=== PATIENT | male | born 1960 | race Caucasian/White ===

== ENCOUNTER → 2016-10-12 | Outpatient (CLI) | payer OTHER | LOC: M SLEEP 19:01 | PROVIDERS: ATTEND Nurse Practitioner Adult Health | DX: G47.30 Sleep apnea, unspecified (principal) ==

== ENCOUNTER → 2016-11-22 | Outpatient (CLI) | payer OTHER ==
--- NOTE | 2016-11-24 10:05 | SLEEPCENT ---
DATE OF PROCEDURE: 11/22/2016 ORDERED BY: WALLY Cheney Nocturnal polysomnography was performed for the titration of pressure therapy in this patient with severe obstructive sleep apnea syndrome, apnea hypopnea index 48.8. For testing, the patient was fit with a ResMed Quattro full face mask of small size. 4 cm of water pressure were applied to the circuit and the lights were extinguished. 8 hours and 27 minutes of data were reviewed. There were 418 minutes of sleep identified. Sleep latency was normal at 9 minutes. Rapid eye movement (REM) latency was mildly delayed at 114 minutes. Sleep architecture initially fragmented did improve with pressure therapy. There were 4 REM periods appreciated. Overall sleep efficiency was 83.9%. EKG showed a sinus rhythm with an average heart rate of 75 beats per minute. EEG showed some alpha intrusion. No focal events were seen. Normal waveforms for awake and sleep. Respiratory events were best palliated with CPAP at a pressure of +9. CPAP tolerance was good. There was some limb activity appreciated on this testing. Limb movement arousal index was 6.7. IMPRESSION: Obstructive sleep apnea syndrome (G47.33). RECOMMENDATION: Nightly use of pressure therapy 9 cm of water.
== END ==
LOC: M SLEEP 19:08
PROVIDERS: ATTEND Nurse Practitioner Adult Health
DX: G47.33 Obstructive sleep apnea (adult) (pediatric) (principal)

== ENCOUNTER → 2017-11-18 | Outpatient (CLI) | payer OTHER | LOC: M WUC 15:33 | DX: M47.816 Spondylosis without myelopathy or radiculopathy, lumbar region (principal) | CPT/HCPCS: 72110 ==

== ENCOUNTER → 2018-05-05 | Outpatient (CLI) | payer OTHER | LOC: M WUC 10:32 | DX: M25.511 Pain in right shoulder (principal) | CPT/HCPCS: 73030 ==

== ENCOUNTER → 2018-11-26 | Outpatient (CLI) | payer OTHER ==
[2018-11-26 12:18] LABS: BASO # 0.1 10^3/uL (0.0-0.2); BASO % 1.1 % (0.0-1.0); EOS # 0.1 10^3/uL (0.0-0.50); EOS % 1.8 % (0.0-3.0); HEMATOCRIT 47.3 % (42.0-52.0); HEMOGLOBIN 15.7 g/dl (13.5-17.5); LYMPH # 0.9 10^3/uL (1.5-4.5); LYMPH % 15.5 % (24.0-44.0); MEAN CORPUSCULAR HEMOGLOBIN 30.5 pg (27.0-33.0); MEAN CORPUSCULAR HGB CONC 33.2 g/dl (32.0-36.5); MEAN CORPUSCULAR VOLUME 91.8 fl (80.0-96.0); MONO # 0.5 10^3/uL (0.0-0.8); NEUTROPHILS # 4.1 10^3/uL (1.8-7.7); NEUTROPHILS % 71.4 % (36.0-66.0); PLATELET COUNT, AUTOMATED 174 10^3/uL (150-450); RED BLOOD COUNT 5.15 10^6/uL (4.30-6.10); WHITE BLOOD COUNT 5.7 10^3/uL (4.0-10.0)
[2018-11-26 13:03] LABS: ALBUMIN 4.2 GM/DL (3.2-5.2); ALT/SGPT 66 U/L (12-78); BILIRUBIN,TOTAL 0.8 MG/DL (0.2-1.0); BLOOD UREA NITROGEN 12 MG/DL (7-18); CALCIUM LEVEL 8.7 MG/DL (8.5-10.1); CARBON DIOXIDE LEVEL 31 MEQ/L (21-32); CHLORIDE LEVEL 104 MEQ/L (98-107); CREATININE FOR GFR 0.79 MG/DL (0.70-1.30); FREE T4 1.39 NG/DL (0.76-1.46); GLOMERULAR FILTRATION RATE > 60.0 (>56); GLUCOSE, FASTING 113 MG/DL (70-100); POTASSIUM SERUM 4.1 MEQ/L (3.5-5.1); SODIUM LEVEL 141 MEQ/L (136-145); THYROID STIMULATING HORMONE 0.293 uIU/ML (0.358-3.740); TOTAL PROTEIN 7.1 GM/DL (6.4-8.2)
[2018-11-26 13:12] LABS: HEPATITIS B SURFACE ANTIGEN NEGATIVE (NEGATIVE)
[2018-11-26 13:40] LABS: HEPATITIS B CORE ANTIBODY IGM NEGATIVE (NEGATIVE)
[2018-11-26 13:42] LABS: HEPATITIS A ANTIBODY IGM NEGATIVE (NEGATIVE)
== END ==
LOC: M LAB 11:11
PROVIDERS: ATTEND Internal Medicine Gastroenterology
DX: K50.018 Crohn's disease of small intestine with other complication (principal)

== ENCOUNTER → 2018-11-27 | Outpatient (REF) | payer OTHER | LOC: M LAB REF 13:08 | PROVIDERS: ATTEND Internal Medicine Gastroenterology | DX: K50.018 Crohn's disease of small intestine with other complication (principal) ==

== ENCOUNTER 2019-01-05 11:04 | Day surgery (SDC) | payer OTHER ==
[~2019-01-05] VITALS: Ht 188 cm; Wt 98.0 kg
[~2019-01-05 11:04] MED LIST: ALL10TAB3 PO; ATOR1TAB21 PO; DELZ400C PO; ESOM1CAP5 PO; FEXO180T70 PO; INVO300T PO; LOSA100T50 PO; METF500T13 PO; NAPR-885 PO; NAPR220C23 PO; NS 1,000 ML IV ONE
--- NOTE | 2019-01-05 12:38 | ROOR ---
Patient Name: Nohemi Leigh Procedure Date: 01/05/2019 12:25 PM Date of : 1960 Age: 58 Room: [facility] Gender: Male Note Status: Finalized Procedure: Upper GI endoscopy Indications: Nausea Providers: José Miguel WALLIS MD Referring MD: PADILLA SAAVEDRA JR, MD Requesting Provider: Medicines: Monitored Anesthesia Care Complications: No immediate complications. Procedure: Pre-Anesthesia Assessment: - The heart rate, respiratory rate, oxygen saturations, blood pressure, adequacy of pulmonary ventilation, and response to care were monitored throughout the procedure. The Endoscope was introduced through the mouth, and advanced to the second part of duodenum. The upper GI endoscopy was accomplished without difficulty. The patient tolerated the procedure well. Findings: The esophagus was normal. The stomach was normal. The examined duodenum was normal. Impression: - Normal esophagus. - Normal stomach. - Normal examined duodenum. - No specimens collected. Recommendation: - Observe patient's clinical course. - Continue present medications. José Miguel Wallis MD José Miguel WALLIS MD 01/05/2019 12:37:58 PM Electronically signed by José Miguel WALLIS MD Number of Addenda: 0 Note Initiated On: 01/05/2019 12:25 PM Estimated Blood Loss: Estimated blood loss: none.
[2019-01-05] MEDS ORDERED: fentaNYL 100 MCG/2 ML INJECTION (J3010) As Ordered ONE (12:58)
[2019-01-05] MEDS ORDERED: LIDOCAINE 2% INJ 100 MG/5 ML SDV (FOR ANES.) As Ordered ONE (12:58)
[2019-01-05] MEDS ORDERED: PROPOFOL 500 MG/50 ML VIAL As Ordered ONE (12:58)
--- NOTE | 2019-01-05 13:08 | ROOR ---
Patient Name: Nohemi Leigh Procedure Date: 01/05/2019 12:25 PM Date of : 1960 Age: 58 Room: [facility] Gender: Male Note Status: Finalized Procedure: Colonoscopy Indications: Follow-up of Crohn's disease of the small bowel, Disease activity assessment of Crohn's disease of the small bowel Providers: José Miguel ALBERT MD Referring MD: PADILLA SAAVEDRA JR, MD, Jesus Ruiz MD Requesting Provider: Medicines: Monitored Anesthesia Care Complications: No immediate complications. Procedure: Pre-Anesthesia Assessment: - The heart rate, respiratory rate, oxygen saturations, blood pressure, adequacy of pulmonary ventilation, and response to care were monitored throughout the procedure. The Colonoscope was introduced through the anus and advanced to 10 cm into the ileum. The colonoscopy was performed without difficulty. The patient tolerated the procedure well. The quality of the bowel preparation was good. Findings: The perianal and digital rectal examinations were normal. The napoleon-terminal ileum contained multiple five mm ulcers. Biopsies were taken with a cold forceps for histology. The colon (entire examined portion) appeared normal. Retroflexion in the right colon was performed. There was evidence of a prior functional end-to-end ileo-colonic anastomosis in the ascending colon. This was patent and was characterized by ulceration. The anastomosis was traversed. Impression: - Crohns disease Ileum: Widely patent ileo-colonic anastomosis with a few ulcerations. There are multiple scattered aphta and small ulcers in the napoleon-terminal ileum. Biopsied. - Small internal hemorrhoids. - The colon is normal. Recommendation: - Await pathology results. - Return to my office at the next available appointment. - (I would recommend starting you on a biologic crohns medication such as remicade/humira or entyvio/stelara. To be discussed) José Miguel Albert MD José Miguel ALBERT MD 01/05/2019 1:08:27 PM Electronically signed by José Miguel ALBERT MD Number of Addenda: 0 Note Initiated On: 01/05/2019 12:25 PM Estimated Blood Loss: Estimated blood loss: none.
[2019-01-05 15:08] VITALS: BP 114/69
== END 2019-01-05 15:05 | disposition home or self-care (01) ==
LOC: M OPP 11:04
PROVIDERS: ATTEND Internal Medicine Gastroenterology
DX: K63.3 Ulcer of intestine (principal); Z98.0 Intestinal bypass and anastomosis status; K50.00 Crohn's disease of small intestine without complications; K64.8 Other hemorrhoids; K21.9 Gastro-esophageal reflux disease without esophagitis; Z79.899 Other long term (current) drug therapy; Z91.040 Latex allergy status
CPT/HCPCS: 45380; 88305; J3010

== ENCOUNTER 2019-02-16 13:59 | Outpatient (CLI) | payer OTHER ==
[~2019-02-16] VITALS: Ht 188 cm; Wt 99.3 kg
[~2019-02-16 13:59] MED LIST changes: -NS 1,000 ML IV ONE
[2019-02-16 14:05] VITALS: BP 153/88
[2019-02-16] MEDS ORDERED: VEDOLIZUMAB 300 MG in NS 250 ML IV ONE (15:00)
[2019-02-16] MEDS ORDERED: CHOL4PW PO (15:39)
[2019-02-16] MEDS ORDERED: ENTY1INJ IV (15:41)
[2019-02-16 15:45] VITALS: BP 143/84
[2019-02-16 16:20] VITALS: BP 134/83
[2019-02-16 16:35] VITALS: BP 144/90
== END 2019-02-16 16:35 | disposition home or self-care (01) ==
LOC: M INFU 13:59
PROVIDERS: ATTEND Internal Medicine Gastroenterology
DX: K50.90 Crohn's disease, unspecified, without complications (principal); Z91.040 Latex allergy status
CPT/HCPCS: 96365; J3380

== ENCOUNTER 2019-03-02 13:57 | Outpatient (CLI) | payer OTHER ==
[~2019-03-02] VITALS: Ht 188 cm; Wt 98.2 kg
[~2019-03-02 13:57] MED LIST changes: +CHOL4PW PO; +ENTY1INJ IV
[2019-03-02 14:10] VITALS: BP 154/81
[2019-03-02] MEDS ORDERED: VEDOLIZUMAB 300 MG in NS 250 ML IV ONE (15:00)
[2019-03-02 15:35] VITALS: BP 158/84
[2019-03-02 16:00] VITALS: BP 155/83
== END 2019-03-02 16:00 | disposition home or self-care (01) ==
LOC: M INFU 13:57
PROVIDERS: ATTEND Internal Medicine Gastroenterology
DX: K50.90 Crohn's disease, unspecified, without complications (principal)
CPT/HCPCS: 96365; J3380

== ENCOUNTER 2019-03-30 13:56 | Outpatient (CLI) | payer OTHER ==
[~2019-03-30] VITALS: Ht 188 cm; Wt 99.3 kg
[2019-03-30 14:00] VITALS: BP 157/91
[2019-03-30] MEDS ORDERED: VEDOLIZUMAB 300 MG in NS 250 ML IV ONE (14:45)
[2019-03-30 15:40] VITALS: BP 154/82
== END 2019-03-30 15:40 | disposition home or self-care (01) ==
LOC: M INFU 13:56
PROVIDERS: ATTEND Internal Medicine Gastroenterology
DX: K50.90 Crohn's disease, unspecified, without complications (principal); Z91.040 Latex allergy status
CPT/HCPCS: 96365; J3380

== ENCOUNTER 2019-05-25 14:04 | Outpatient (CLI) | payer OTHER ==
[~2019-05-25] VITALS: Ht 188 cm; Wt 99.3 kg
[2019-05-25 14:15] VITALS: BP 145/97
[2019-05-25] MEDS ORDERED: diphenhydrAMINE 25 MG CAP PO ONE ×2 (14:30→16:30)
[2019-05-25] MEDS ORDERED: VEDOLIZUMAB 300 MG in NS 250 ML IV ONE (14:30)
[2019-05-25] MEDS ORDERED: ACETAMINOPHEN TAB 650MG DOSE (2X325MG) PO ONE (14:30)
== END 2019-05-25 17:00 | disposition home or self-care (01) ==
LOC: M INFU 14:04
PROVIDERS: ATTEND Internal Medicine Gastroenterology
DX: K50.90 Crohn's disease, unspecified, without complications (principal); Z91.040 Latex allergy status
CPT/HCPCS: 96365; J3380

== ENCOUNTER 2019-07-20 14:07 | Outpatient (CLI) | payer OTHER ==
[~2019-07-20] VITALS: Ht 188 cm; Wt 102.0 kg
[2019-07-20 14:20] VITALS: BP 159/90
[2019-07-20 15:40] VITALS: BP 166/88
[2019-07-20] MEDS ORDERED: VEDOLIZUMAB 300 MG in NS 250 ML IV ONE (16:00)
[2019-07-20] MEDS ORDERED: diphenhydrAMINE 25 MG CAP PO ONE (16:00)
== END 2019-07-20 15:40 | disposition home or self-care (01) ==
LOC: M INFU 14:07
PROVIDERS: ATTEND Internal Medicine Gastroenterology
DX: K50.90 Crohn's disease, unspecified, without complications (principal); Z79.899 Other long term (current) drug therapy; Z91.040 Latex allergy status

== ENCOUNTER → 2019-08-05 | Outpatient (CLI) | payer OTHER ==
[2019-08-05 14:05] LABS: BASO # 0.1 10^3/uL (0.0-0.2); BASO % 1.2 % (0.0-1.0); EOS # 0.3 10^3/uL (0.0-0.5); EOS % 4.1 % (0.0-3.0); HEMATOCRIT 49.4 % (42.0-52.0); HEMOGLOBIN 16.5 g/dl (13.5-17.5); LYMPH # 1.3 10^3/uL (1.5-5.0); LYMPH % 19.5 % (24.0-44.0); MEAN CORPUSCULAR HEMOGLOBIN 29.8 pg (27.0-33.0); MEAN CORPUSCULAR HGB CONC 33.4 g/dl (32.0-36.5); MEAN CORPUSCULAR VOLUME 89.3 fl (80.0-96.0); MONO # 0.6 10^3/uL (0.0-0.8); MONO % 9.1 % (0.0-5.0); NEUTROPHILS # 4.3 10^3/uL (1.5-8.5); PLATELET COUNT, AUTOMATED 209 10^3/uL (150-450); RED BLOOD COUNT 5.53 10^6/uL (4.30-6.10); WHITE BLOOD COUNT 6.6 10^3/uL (4.0-10.0)
[2019-08-05 14:27] LABS: ALBUMIN 4.4 GM/DL (3.2-5.2); ALT/SGPT 80 U/L (12-78); BILIRUBIN,TOTAL 0.6 MG/DL (0.2-1.0); BLOOD UREA NITROGEN 9 MG/DL (7-18); C REACTIVE PROTEIN QUANTITATIV < 0.30 MG/DL (0.00-0.30); CARBON DIOXIDE LEVEL 28 MEQ/L (21-32); CHLORIDE LEVEL 105 MEQ/L (98-107); CREATININE FOR GFR 0.83 MG/DL (0.70-1.30); GLOMERULAR FILTRATION RATE > 60.0 (>56); GLUCOSE, FASTING 97 MG/DL (70-100); POTASSIUM SERUM 4.2 MEQ/L (3.5-5.1); SODIUM LEVEL 140 MEQ/L (136-145); TOTAL PROTEIN 8.1 GM/DL (6.4-8.2)
[2019-08-05 14:35] LABS: VITAMIN B12 LEVEL 365 PG/ML (247-911)
== END ==
LOC: M LAB 12:32
PROVIDERS: ATTEND Internal Medicine Gastroenterology
DX: K50.018 Crohn's disease of small intestine with other complication (principal)

== ENCOUNTER → 2019-08-06 | Outpatient (REF) | payer OTHER | LOC: M LAB REF 15:24 | PROVIDERS: ATTEND Internal Medicine Gastroenterology | DX: K50.018 Crohn's disease of small intestine with other complication (principal) ==

== ENCOUNTER → 2019-08-17 | Outpatient (CLI) | payer OTHER ==
--- NOTE | 2019-08-17 07:29 | REP ---
Clinical: Abnormal liver function tests. Technique: Real time fletcher scale and color evaluation using curved array transducer. Findings: Liver is increased echogenicity with poor through transmission suggesting fatty infiltration. No focal hepatic lesion identified. Pancreas is incompletely evaluated due to interposed bowel gas but visualized portions appear normal. Gallbladder includes 7 mm polyp without wall thickening, cholelithiasis, or pericholecystic fluid. No biliary ductal dilatation is appreciated and the common bile duct measures 3.1 mm diameter. The right kidney is normal in reniform shape without hydronephrosis and measures 13.3 x 7.2 x 6.2 cm. Visualized abdominal aorta normal. No ascites in the right upper quadrant. Impression: 1. Hepatic steatosis. 2. 7 mm gallbladder polyp. Electronically Signed by Nathan Interiano MD 08/17/2019 07:20 A
== END ==
LOC: M RAD 06:29
PROVIDERS: ATTEND Internal Medicine Gastroenterology
DX: R74.8 Abnormal levels of other serum enzymes (principal); K82.4 Cholesterolosis of gallbladder; K76.0 Fatty (change of) liver, not elsewhere classified

== ENCOUNTER 2019-09-14 14:02 | Outpatient (CLI) | payer OTHER ==
[~2019-09-14] VITALS: Ht 188 cm; Wt 102.0 kg
[2019-09-14 14:15] VITALS: BP 166/91
[2019-09-14] MEDS ORDERED: VEDOLIZUMAB 300 MG in NS 250 ML IV ONE (15:00)
[2019-09-14] MEDS ORDERED: diphenhydrAMINE 25 MG CAP PO ONE (15:00)
[2019-09-14 15:25] VITALS: BP 142/88
== END 2019-09-14 15:25 | disposition home or self-care (01) ==
LOC: M INFU 14:02
PROVIDERS: ATTEND Internal Medicine Gastroenterology
DX: K50.90 Crohn's disease, unspecified, without complications (principal); Z91.040 Latex allergy status
CPT/HCPCS: 96365; J3380

== ENCOUNTER 2019-11-09 13:51 | Outpatient (CLI) | payer OTHER ==
[~2019-11-09] VITALS: Ht 188 cm; Wt 102.0 kg
[2019-11-09 14:00] VITALS: BP 150/84
[2019-11-09] MEDS ORDERED: diphenhydrAMINE 25MG CAP PO ONE (14:15)
[2019-11-09] MEDS ORDERED: VEDOLIZUMAB 300 MG in NS 250 ML IV ONE (14:15)
[2019-11-09 15:15] VITALS: BP 148/76
== END 2019-11-09 15:15 | disposition home or self-care (01) ==
LOC: M INFU 13:51
PROVIDERS: ATTEND Internal Medicine Gastroenterology
DX: K50.90 Crohn's disease, unspecified, without complications (principal)
CPT/HCPCS: 96365; J3380

== ENCOUNTER → 2019-11-12 | Outpatient (CLI) | payer OTHER ==
[2019-11-12 18:57] LABS: ALBUMIN 3.9 GM/DL (3.2-5.2); ALT/SGPT 115 U/L (12-78); BILIRUBIN,DIRECT < 0.1 MG/DL (0.0-0.2); BILIRUBIN,TOTAL 0.5 MG/DL (0.2-1.0); IRON (FE) 83 UG/DL (65-175); PERCENT SATURATION 18.7 % (19.7-50.0); TOTAL IRON BINDING CAPACITY 444 UG/DL (250-450); TOTAL PROTEIN 8.1 GM/DL (6.4-8.2)
[2019-11-13 11:04] LABS: HEPATITIS B SURFACE ANTIGEN NEGATIVE (NEGATIVE)
[2019-11-13 11:29] LABS: HEPATITIS C VIRUS ABY INDEX 0.1 INDEX (<0.8)
[2019-11-13 11:30] LABS: HEPATITIS B CORE ANTIBODY IGM NEGATIVE (NEGATIVE)
[2019-11-13 11:32] LABS: HEPATITIS A ANTIBODY IGM NEGATIVE (NEGATIVE)
== END ==
LOC: M LAB 16:08
PROVIDERS: ATTEND Internal Medicine Gastroenterology
DX: R74.8 Abnormal levels of other serum enzymes (principal)

== ENCOUNTER 2020-01-04 13:54 | Outpatient (CLI) | payer OTHER ==
[~2020-01-04] VITALS: Ht 188 cm; Wt 102.0 kg
[~2020-01-04 13:54] MED LIST changes: -DELZ400C PO; +DELZ400C5 PO
[2020-01-04] MEDS ORDERED: VEDOLIZUMAB 300 MG in NS 250 ML IV ONE (14:00)
[2020-01-04 14:05] VITALS: BP 136/85
[2020-01-04 15:15] VITALS: BP 129/79
== END 2020-01-04 15:15 | disposition home or self-care (01) ==
LOC: M INFU 13:54
PROVIDERS: ATTEND Internal Medicine Gastroenterology
DX: K50.90 Crohn's disease, unspecified, without complications (principal)

== ENCOUNTER 2020-02-29 14:30 | Outpatient (CLI) | payer OTHER ==
[~2020-02-29 14:30] MED LIST changes: +VEDOLIZUMAB 300MG VIAL (ENTYVIO) (J3380 PER 1MG) ONE
== END 2020-02-29 15:30 | disposition home or self-care (01) ==
LOC: M INFU 14:30
PROVIDERS: ATTEND Internal Medicine Gastroenterology
DX: K50.90 Crohn's disease, unspecified, without complications (principal)
CPT/HCPCS: 96365; J3380

== ENCOUNTER 2020-04-25 14:02 | Outpatient (CLI) | payer OTHER ==
[~2020-04-25] VITALS: Ht 188 cm; Wt 102.0 kg
[~2020-04-25 14:02] MED LIST changes: -VEDOLIZUMAB 300MG VIAL (ENTYVIO) (J3380 PER 1MG) ONE
[2020-04-25 14:05] VITALS: BP 134/85
[2020-04-25] MEDS: VEDOLIZUMAB 300 MG in NS 250 ML IV ONE (14:27)
[2020-04-25] MEDS ORDERED: COLE625TAB PO (15:01)
[2020-04-25] MEDS ORDERED: OMEP40CA97 PO (15:02)
[2020-04-25 15:10] VITALS: BP 141/83
== END 2020-04-25 15:10 | disposition home or self-care (01) ==
LOC: M INFU 14:02
PROVIDERS: ATTEND Internal Medicine Gastroenterology
DX: K50.90 Crohn's disease, unspecified, without complications (principal)
CPT/HCPCS: 96365; J3380

== ENCOUNTER → 2020-05-26 | Outpatient (CLI) | payer OTHER ==
[~2020-05-26] MED LIST changes: +COLE625TAB PO; +OMEP40CA97 PO
[2020-05-26 11:00] LABS: BASO # 0.1 10^3/uL (0.0-0.2); BASO % 1.1 % (0.0-1.0); EOS # 0.3 10^3/uL (0.0-0.5); EOS % 4.8 % (0.0-3.0); HEMOGLOBIN 15.9 g/dl (13.5-17.5); LYMPH # 1.2 10^3/uL (1.5-5.0); LYMPH % 16.4 % (24.0-44.0); MEAN CORPUSCULAR HEMOGLOBIN 29.1 pg (27.0-33.0); MEAN CORPUSCULAR HGB CONC 32.4 g/dl (32.0-36.5); MEAN CORPUSCULAR VOLUME 89.7 fl (80.0-96.0); MONO # 0.6 10^3/uL (0.0-0.8); MONO % 8.3 % (0.0-5.0); NEUTROPHILS # 4.8 10^3/uL (1.5-8.5); NEUTROPHILS % 68.3 % (36.0-66.0); PLATELET COUNT, AUTOMATED 184 10^3/uL (150-450); RED BLOOD COUNT 5.46 10^6/uL (4.30-6.10)
[2020-05-26 11:24] LABS: ERYTHROCYTE SEDIMENTATION RATE 5 mm/hr (0-20)
[2020-05-26 11:31] LABS: ALT/SGPT 60 U/L (12-78); BILIRUBIN,TOTAL 0.8 MG/DL (0.2-1.0); BLOOD UREA NITROGEN 11 MG/DL (7-18); CALCIUM LEVEL 9.2 MG/DL (8.5-10.1); CARBON DIOXIDE LEVEL 28 MEQ/L (21-32); CHLORIDE LEVEL 104 MEQ/L (98-107); CREATININE FOR GFR 0.87 MG/DL (0.70-1.30); FREE T4 1.16 NG/DL (0.76-1.46); GLOMERULAR FILTRATION RATE > 60.0 (>56); GLUCOSE, FASTING 164 MG/DL (70-100); IRON (FE) 87 UG/DL (65-175); PERCENT SATURATION 20.1 % (19.7-50.0); POTASSIUM SERUM 4.2 MEQ/L (3.5-5.1); SODIUM LEVEL 140 MEQ/L (136-145); THYROID STIMULATING HORMONE 0.602 uIU/ML (0.358-3.740); TOTAL IRON BINDING CAPACITY 432 UG/DL (250-450); TOTAL PROTEIN 7.7 GM/DL (6.4-8.2)
[2020-05-26 11:33] LABS: VITAMIN B12 LEVEL 454 PG/ML (247-911)
== END ==
LOC: M LAB 10:18
PROVIDERS: ATTEND Internal Medicine Gastroenterology
DX: K50.00 Crohn's disease of small intestine without complications (principal)

== ENCOUNTER → 2020-06-08 | Outpatient (CLI) | payer OTHER ==
[~2020-06-08] MED LIST changes: +E-Z-GAS II EFFERVESCENT PACKET (SODIUM BICARB./CITRIC ACID/SIMETHICONE) As Ordered ONE; +E-Z-HD 98% w/w 340GM SUSP BTL As Ordered ONE; +E-Z-PAQUE 96% w/w SUSP 176GM BTL As Ordered ONE
--- NOTE | 2020-06-08 15:34 | REP ---
INDICATION: ABN LFTS, HEARTBURN US 1ST XR 2ND COMPARISON: 08/17/2019 TECHNIQUE: Real time fletcher scale ultrasound examination using curved array transducer. FINDINGS: Liver is hyperechoic with poor through transmission and measures 20.3 cm in length. No focal hepatic lesions are identified. Pancreas is incompletely evaluated due to interposed bowel gas. The gallbladder demonstrates nonshadowing echogenic foci adjacent to the nondependent wall measuring up to 7 mm which may reflect small polyps. No obvious gallstones, wall thickening, or pericholecystic fluid. No biliary ductal dilatation is appreciated and the common bile duct measures 3.4 mm diameter. Right kidney is normal in reniform shape with suggestion for duplicated system and measures 13.6 x 6.4 x 5.9 cm. No hydronephrosis or nephrolithiasis. No ascites in the visualized right upper quadrant. IMPRESSION: 1. Suspected few benign gallbladder polyps up to 7 mm. 2. Hepatomegaly and hepatosteatosis. <Electronically signed by Nathan Interiano > 06/08/20 [id number]
--- NOTE | 2020-06-08 17:53 | REP ---
INDICATION: HEARTBURN US 1ST XR 2ND. COMPARISON: None TECHNIQUE: This procedure was performed by Delphine Roman, [facility], under the direct supervision of Dr. Melissa. Images were reviewed with Dr. Melissa prior to dictation. Liquid barium and gas producing crystals were given in the erect position, as well as liquid barium in the prone oblique position in order to perform a double contrast upper GI examination. FINDINGS: A single view PA chest x-ray is submitted as a accounting lecturer film. The superior mediastinal structures are midline. The heart size is within normal limits. The lungs are clear. The oral and pharyngeal stages of deglutition were unremarkable. Esophageal transport is prompt and efficient and there is no evidence of esophagitis, stricture, or mucosal ring. There is no evidence of a hiatal hernia. There is no gastroesophageal reflux noted . IMPRESSION: Unremarkable esophagram. 0.2 minutes of fluoroscopy time was utilized for this procedure. Some fluoroscopic images are performed with last image hold technology. These images require no additional radiation. <Electronically signed by Delphine Roman > 06/08/20 [id number] <Electronically signed by Grant Melissa > 06/08/20 [id number]
== END ==
LOC: M RAD 07:08
PROVIDERS: ATTEND Internal Medicine Gastroenterology
DX: R12 Heartburn (principal); R94.5 Abnormal results of liver function studies; K82.4 Cholesterolosis of gallbladder; R16.0 Hepatomegaly, not elsewhere classified

== ENCOUNTER 2020-06-20 13:45 | Outpatient (CLI) | payer OTHER ==
[~2020-06-20 13:45] MED LIST changes: -E-Z-GAS II EFFERVESCENT PACKET (SODIUM BICARB./CITRIC ACID/SIMETHICONE) As Ordered ONE; -E-Z-HD 98% w/w 340GM SUSP BTL As Ordered ONE; -E-Z-PAQUE 96% w/w SUSP 176GM BTL As Ordered ONE
[2020-06-20 14:00] VITALS: BP 163/99
[2020-06-20] MEDS ORDERED: VEDOLIZUMAB 300 MG in NS 250 ML IV ONE (14:30)
[2020-06-20 15:10] VITALS: BP 157/88
== END 2020-06-20 15:10 | disposition home or self-care (01) ==
LOC: M INFU 13:45
PROVIDERS: ATTEND Internal Medicine Gastroenterology
DX: K50.90 Crohn's disease, unspecified, without complications (principal); Z91.040 Latex allergy status
CPT/HCPCS: 96365; J3380

== ENCOUNTER 2020-08-01 13:40 | Outpatient (CLI) | payer OTHER ==
[~2020-08-01] VITALS: Ht 188 cm; Wt 102.0 kg
[2020-08-01 13:45] VITALS: BP 165/90
[2020-08-01] MEDS ORDERED: VEDOLIZUMAB 300 MG in NS 250 ML IV ONE (14:00)
[2020-08-01 15:30] VITALS: BP 125/79
== END 2020-08-01 15:30 | disposition home or self-care (01) ==
LOC: M INFU 13:40
PROVIDERS: ATTEND Internal Medicine Gastroenterology
DX: K50.90 Crohn's disease, unspecified, without complications (principal); Z91.040 Latex allergy status
CPT/HCPCS: 96365; J3380

== ENCOUNTER 2020-09-12 14:00 | Outpatient (CLI) | payer OTHER ==
[~2020-09-12] VITALS: Ht 188 cm; Wt 102.0 kg
[2020-09-12 14:05] VITALS: BP 169/93
[2020-09-12] MEDS ORDERED: VEDOLIZUMAB 300 MG in NS 250 ML IV ONE (14:30)
[2020-09-12 15:15] VITALS: BP 129/84
== END 2020-09-12 15:15 | disposition home or self-care (01) ==
LOC: M INFU 14:00
PROVIDERS: ATTEND Internal Medicine Gastroenterology
DX: K50.90 Crohn's disease, unspecified, without complications (principal); Z91.040 Latex allergy status
CPT/HCPCS: 96365; J3380

== ENCOUNTER → 2020-10-11 | Outpatient (REF) | payer OTHER ==
[2020-10-12 08:10] LABS: LDL DIRECT 30 mg/dL (0-99)
== END ==
LOC: M LAB REF 12:02
PROVIDERS: ATTEND Internal Medicine
DX: E78.00 Pure hypercholesterolemia, unspecified (principal)

== ENCOUNTER 2020-10-24 15:04 | Outpatient (CLI) | payer OTHER ==
[~2020-10-24] VITALS: Ht 188 cm; Wt 102.0 kg
[2020-10-24 15:25] VITALS: BP 123/83
[2020-10-24] MEDS ORDERED: VEDOLIZUMAB 300 MG in NS 250 ML IV ONE (15:30)
[2020-10-24 16:02] VITALS: BP 135/81
== END 2020-10-24 16:10 | disposition home or self-care (01) ==
LOC: M INFU 15:04
PROVIDERS: ATTEND Internal Medicine Gastroenterology
DX: K50.90 Crohn's disease, unspecified, without complications (principal); Z91.040 Latex allergy status
CPT/HCPCS: 96365; J3380

== ENCOUNTER → 2020-11-24 | Outpatient (CLI) | payer OTHER ==
[2020-11-24 14:50] LABS: ALBUMIN 4.2 GM/DL (3.2-5.2); ALT/SGPT 45 U/L (12-78); BILIRUBIN,DIRECT 0.2 MG/DL (0.0-0.2); BILIRUBIN,TOTAL 0.6 MG/DL (0.2-1.0); TOTAL PROTEIN 7.8 GM/DL (6.4-8.2)
== END ==
LOC: M LAB 13:32
PROVIDERS: ATTEND Internal Medicine Gastroenterology
DX: K50.00 Crohn's disease of small intestine without complications (principal)
CPT/HCPCS: 36415; 80076; 82977; 86480; G0499

== ENCOUNTER 2020-12-05 06:44 | Outpatient (CLI) | payer OTHER ==
[~2020-12-05] VITALS: Ht 188 cm; Wt 102.0 kg
[2020-12-05] MEDS ORDERED: VEDOLIZUMAB 300 MG in NS 250 ML IV ONE (07:30)
[2020-12-05 07:40] VITALS: BP 137/88
[2020-12-05 08:30] VITALS: BP 144/70
== END 2020-12-05 08:30 | disposition home or self-care (01) ==
LOC: M INFU 06:44
PROVIDERS: ATTEND Internal Medicine Gastroenterology
DX: K50.90 Crohn's disease, unspecified, without complications (principal); Z91.040 Latex allergy status
CPT/HCPCS: 96365; J3380

== ENCOUNTER → 2021-05-05 | Outpatient (REF) | payer OTHER ==
[~2021-05-05] MED LIST changes: +OMEP40CA4 PO; -OMEP40CA97 PO
[2021-05-08 19:07] LABS: LDL DIRECT 33 mg/dL (0-99)
== END ==
LOC: M LAB REF 16:07
PROVIDERS: ATTEND Internal Medicine
DX: E11.65 Type 2 diabetes mellitus with hyperglycemia (principal); E78.00 Pure hypercholesterolemia, unspecified

== ENCOUNTER → 2021-05-22 | Outpatient (CLI) | payer OTHER ==
--- NOTE | 2021-05-22 15:54 | REP ---
INDICATION: THYROID NODULES SEEN ON CAROTID U/S. COMPARISON: None. TECHNIQUE: Real-time sonographic evaluation of the thyroid gland with Doppler FINDINGS: The right lobe of the thyroid gland measures 6.5 x 3 x 2.5 cm and the left lobe measures 5.7 x 2.7 x 2.1 cm. The isthmus measures 6 mm. Numerous nodules are seen throughout the right lobe. The largest solid nodule measures 1.2 x 0.7 x 1.3. The next largest measures 1.1 x 0.6 x 1.2 cm. The smallest is complex measuring 6.8 mm in its greatest dimension. No abnormal nodules were seen on the left. IMPRESSION: Thyromegaly and nodules as described above. <Electronically signed by Jamie Giang > 05/22/21 [id number]
== END ==
LOC: M RAD 15:03
PROVIDERS: ATTEND Internal Medicine
DX: E04.2 Nontoxic multinodular goiter (principal)

== ENCOUNTER → 2021-06-28 | Outpatient (CLI) | payer OTHER ==
[~2021-06-28] MED LIST changes: +HUMI40IN2 SC
== END ==
LOC: M LABSMTC 09:16
PROVIDERS: ATTEND Anesthesiology
DX: Z01.812 Encounter for preprocedural laboratory examination (principal); Z20.822 Contact with and (suspected) exposure to COVID-19

== ENCOUNTER 2021-07-03 07:03 | Day surgery (SDC) | payer OTHER ==
[~2021-07-03] VITALS: Ht 188 cm; Wt 93.9 kg
[~2021-07-03 07:03] MED LIST changes: +LOSA100T45 PO; -LOSA100T50 PO; +NS 1,000 ML IV ONE
[2021-07-03] MEDS ORDERED: LIDOCAINE 2% 100MG/5ML SDV (FOR ANES.) As Ordered ONE (08:45)
[2021-07-03] MEDS ORDERED: propofoL 200 MG/20 ML VIAL As Ordered ONE ×2 (08:45→08:55)
[2021-07-03 09:20] VITALS: BP 132/89
== END 2021-07-03 09:48 | disposition home or self-care (01) ==
LOC: M OPP 07:03
PROVIDERS: ATTEND Internal Medicine Gastroenterology
DX: Z12.11 Encounter for screening for malignant neoplasm of colon (principal); Z98.0 Intestinal bypass and anastomosis status; K64.8 Other hemorrhoids; K50.00 Crohn's disease of small intestine without complications; K50.10 Crohn's disease of large intestine without complications; Z79.899 Other long term (current) drug therapy; Z88.8 Allergy status to other drugs, medicaments and biological substances; Z91.040 Latex allergy status; Z90.49 Acquired absence of other specified parts of digestive tract

== ENCOUNTER → 2021-10-19 | Outpatient (CLI) | payer OTHER ==
[~2021-10-19] MED LIST changes: +FEXO-111 PO; -FEXO180T70 PO; -NS 1,000 ML IV ONE
[2021-10-19 16:17] LABS: ALT/SGPT 52 U/L (12-78); BILIRUBIN,DIRECT 0.2 MG/DL (0.0-0.2); BILIRUBIN,TOTAL 0.8 MG/DL (0.2-1.0); TOTAL PROTEIN 8.1 GM/DL (6.4-8.2)
[2021-10-20 12:46] LABS: HEPATITIS B SURFACE ANTIGEN NEGATIVE (NEGATIVE)
== END ==
LOC: M LAB 14:17
PROVIDERS: ATTEND Internal Medicine Gastroenterology
DX: K50.018 Crohn's disease of small intestine with other complication (principal)

== ENCOUNTER → 2021-12-21 | Outpatient (CLI) | payer OTHER | LOC: M RAD 07:21 | PROVIDERS: ATTEND Internal Medicine Gastroenterology | DX: K76.0 Fatty (change of) liver, not elsewhere classified (principal); K82.4 Cholesterolosis of gallbladder; R10.13 Epigastric pain; K75.81 Nonalcoholic steatohepatitis (NASH); K50.018 Crohn's disease of small intestine with other complication; K82.8 Other specified diseases of gallbladder | CPT/HCPCS: 76700; 78227; A9537 ==

== ENCOUNTER → 2022-03-29 | Outpatient (CLI) | payer OTHER ==
[~2022-03-29] MED LIST changes: +COLE625T17 PO; -COLE625TAB PO
[2022-03-29 08:59] LABS: BASO # 0.1 10^3/uL (0.0-0.2); BASO % 0.9 % (0.0-1.0); EOS # 0.2 10^3/uL (0.0-0.5); EOS % 2.5 % (0.0-3.0); HEMATOCRIT 47.6 % (42.0-52.0); HEMOGLOBIN 15.9 g/dl (13.5-17.5); LYMPH # 1.4 10^3/uL (1.5-5.0); LYMPH % 17.2 % (24.0-44.0); MEAN CORPUSCULAR HEMOGLOBIN 29.7 pg (27.0-33.0); MEAN CORPUSCULAR HGB CONC 33.4 g/dl (32.0-36.5); MONO # 0.5 10^3/uL (0.0-0.8); MONO % 6.6 % (2.0-8.0); NEUTROPHILS # 5.7 10^3/uL (1.5-8.5); NEUTROPHILS % 72.2 % (36.0-66.0); PLATELET COUNT, AUTOMATED 212 10^3/uL (150-450); RED BLOOD COUNT 5.35 10^6/uL (4.30-6.10); WHITE BLOOD COUNT 7.9 10^3/uL (4.0-10.0)
[2022-03-29 09:27] LABS: ERYTHROCYTE SEDIMENTATION RATE 6 mm/hr (0-20)
[2022-03-29 09:39] LABS: ALBUMIN 3.9 GM/DL (3.2-5.2); ALT/SGPT 31 U/L (12-78); BILIRUBIN,TOTAL 0.9 MG/DL (0.2-1.0); BLOOD UREA NITROGEN 13 MG/DL (7-18); CALCIUM LEVEL 9.3 MG/DL (8.8-10.2); CARBON DIOXIDE LEVEL 29 MEQ/L (21-32); CHLORIDE LEVEL 101 MEQ/L (98-107); GLOMERULAR FILTRATION RATE > 60.0 (>49); GLUCOSE, FASTING 148 MG/DL (70-100); SODIUM LEVEL 133 MEQ/L (136-145); TOTAL PROTEIN 7.8 GM/DL (6.4-8.2)
== END ==
LOC: M LAB 08:15
PROVIDERS: ATTEND Internal Medicine Gastroenterology
DX: K50.018 Crohn's disease of small intestine with other complication (principal)

== ENCOUNTER → 2022-03-30 | Outpatient (REF) | payer OTHER | LOC: M LAB REF 09:18 | PROVIDERS: ATTEND Internal Medicine Gastroenterology | DX: K50.018 Crohn's disease of small intestine with other complication (principal) ==

== ENCOUNTER → 2022-09-26 | Outpatient (CLI) | payer OTHER ==
[2022-09-26 13:43] LABS: BASO # 0.1 10^3/uL (0.0-0.2); BASO % 1.4 % (0.0-1.0); EOS # 0.4 10^3/uL (0.0-0.5); HEMATOCRIT 49.4 % (42.0-52.0); HEMOGLOBIN 16.3 g/dl (13.5-17.5); LYMPH # 1.7 10^3/uL (1.5-5.0); LYMPH % 22.6 % (24.0-44.0); MEAN CORPUSCULAR HEMOGLOBIN 30.2 pg (27.0-33.0); MEAN CORPUSCULAR VOLUME 91.5 fl (80.0-96.0); MONO # 0.7 10^3/uL (0.0-0.8); MONO % 9.6 % (2.0-8.0); NEUTROPHILS # 4.5 10^3/uL (1.5-8.5); NEUTROPHILS % 60.5 % (36.0-66.0); PLATELET COUNT, AUTOMATED 221 10^3/uL (150-450); WHITE BLOOD COUNT 7.4 10^3/uL (4.0-10.0)
[2022-09-26 14:00] LABS: ERYTHROCYTE SEDIMENTATION RATE 21 mm/hr (0-20)
[2022-09-26 14:17] LABS: ALKALINE PHOSPHATASE 73 U/L (46-116); ALT/SGPT 51 U/L (7.0-40); AST/SGOT 31 U/L (<34); BILIRUBIN,TOTAL 0.7 MG/DL (0.3-1.2); BLOOD UREA NITROGEN 13 MG/DL (9-23); C REACTIVE PROTEIN QUANTITATIV < 0.40 MG/DL (<1.0); CALCIUM LEVEL 9.2 MG/DL (8.3-10.6); CARBON DIOXIDE LEVEL 30 MMOL/L (20-31); CHLORIDE LEVEL 101 MMOL/L (98-107); CREATININE FOR GFR 0.72 MG/DL (0.70-1.30); GLOMERULAR FILTRATION RATE > 60.0 (>49); GLUCOSE, FASTING 128 MG/DL (74-106); POTASSIUM SERUM 4.3 MMOL/L (3.5-5.1); SODIUM LEVEL 137 MMOL/L (136-145)
[2022-09-26 14:21] LABS: VITAMIN B12 LEVEL 368 PG/ML (211-911)
[2022-09-26 14:32] LABS: HEPATITIS B SURFACE ANTIGEN NEGATIVE (NEGATIVE)
== END ==
LOC: M LAB 12:27
PROVIDERS: ATTEND Internal Medicine Gastroenterology
DX: K50.018 Crohn's disease of small intestine with other complication (principal)

== ENCOUNTER 2022-10-18 10:56 | Outpatient (CLI) | payer OTHER ==
[~2022-10-18] VITALS: Ht 188 cm; Wt 91.8 kg
[2022-10-18] MEDS ORDERED: RISANKIZUMAB-RZAA 600 MG in D5W 250 ML IV ONE (11:00)
[2022-10-18 11:31] VITALS: BP 155/91
[2022-10-18 12:46] VITALS: BP 155/96
== END 2022-10-18 12:47 | disposition home or self-care (01) ==
LOC: M INFU 10:56
PROVIDERS: ATTEND Internal Medicine Gastroenterology
DX: K50.90 Crohn's disease, unspecified, without complications (principal)
CPT/HCPCS: 96365; J2327

== ENCOUNTER → 2022-11-15 | Outpatient (CLI) | payer OTHER ==
[~2022-11-15] VITALS: Ht 188 cm; Wt 96.1 kg
[~2022-11-15] MED LIST changes: +RISANKIZUMAB-RZAA 600 MG in D5W 250 ML IV ONE
[2022-11-15 10:45] VITALS: BP 134/84
[2022-11-15 12:10] VITALS: BP 142/89
== END ==
LOC: M INFU 10:50
PROVIDERS: ATTEND Internal Medicine Gastroenterology
DX: K50.90 Crohn's disease, unspecified, without complications (principal)
CPT/HCPCS: 96365; J2327

== ENCOUNTER 2022-12-11 07:23 | Outpatient (CLI) | payer OTHER ==
[~2022-12-11] VITALS: Ht 185.4 cm; Wt 96.1 kg
[~2022-12-11 07:23] MED LIST changes: -LOSA100T45 PO; +LOSA100T46 PO; -RISANKIZUMAB-RZAA 600 MG in D5W 250 ML IV ONE
[2022-12-11 07:57] VITALS: BP 160/94
[2022-12-11] MEDS ORDERED: RISANKIZUMAB-RZAA 600 MG in D5W 250 ML IV ONE (08:00)
[2022-12-11 09:41] VITALS: BP 137/83
== END 2022-12-11 09:24 | disposition home or self-care (01) ==
LOC: M INFU 07:23
PROVIDERS: ATTEND Internal Medicine Gastroenterology
DX: K50.90 Crohn's disease, unspecified, without complications (principal)
CPT/HCPCS: 96365; J2327

== ENCOUNTER → 2023-07-12 | Outpatient (CLI) | payer OTHER ==
[2023-07-12 10:31] LABS: VITAMIN B12 LEVEL 504 PG/ML (211-911)
== END ==
LOC: M LAB 09:23
PROVIDERS: ATTEND Internal Medicine Gastroenterology
DX: K50.018 Crohn's disease of small intestine with other complication (principal); R19.7 Diarrhea, unspecified

== ENCOUNTER 2023-10-17 08:07 | Day surgery (SDC) | payer OTHER ==
[~2023-10-17] VITALS: Ht 188 cm; Wt 96.0 kg
[~2023-10-17 08:07] MED LIST changes: +RISA360W SC; +SEMA1PEN2 SC
[2023-10-17] MEDS: NS 1,000 ML IV ONE (08:49)
[2023-10-17] MEDS ORDERED: propofoL 200 MG/20 ML VIAL As Ordered ONE (08:53)
[2023-10-17 09:22] VITALS: TEMP 98
[2023-10-17 09:40] VITALS: BP 128/81; O2SAT 98
== END 2023-10-17 09:49 | disposition home or self-care (01) ==
LOC: M OPP 08:07
PROVIDERS: ATTEND Internal Medicine Gastroenterology
DX: K63.5 Polyp of colon (principal); K64.8 Other hemorrhoids; K57.30 Diverticulosis of large intestine without perforation or abscess without bleeding; Z98.0 Intestinal bypass and anastomosis status; K50.10 Crohn's disease of large intestine without complications; G47.30 Sleep apnea, unspecified; Z99.89 Dependence on other enabling machines and devices; E11.9 Type 2 diabetes mellitus without complications; Z79.02 Long term (current) use of antithrombotics/antiplatelets; Z79.1 Long term (current) use of non-steroidal anti-inflammatories (NSAID); Z79.83 Long term (current) use of bisphosphonates; Z79.84 Long term (current) use of oral hypoglycemic drugs; Z79.899 Other long term (current) drug therapy; Z91.040 Latex allergy status

== ENCOUNTER → 2023-10-23 | Outpatient (REF) | payer OTHER | LOC: M LAB REF 10:32 | PROVIDERS: ATTEND Internal Medicine Gastroenterology | DX: K50.018 Crohn's disease of small intestine with other complication (principal) ==

== ENCOUNTER → 2023-11-15 | Outpatient (CLI) | payer OTHER | LOC: M RAD 13:29 | PROVIDERS: ATTEND Internal Medicine Gastroenterology | DX: T18.4XXA Foreign body in colon, initial encounter (principal); T18.3XXA Foreign body in small intestine, initial encounter; Y93.9 Activity, unspecified; Y92.9 Unspecified place or not applicable ==

== ENCOUNTER → 2024-01-01 | Outpatient (CLI) | payer OTHER ==
[~2024-01-01] MED LIST changes: +ESOM1CAP20 PO; -ESOM1CAP5 PO
[2024-01-01 10:53] LABS: BLOOD UREA NITROGEN 12 MG/DL (9-23); GLOMERULAR FILTRATION RATE > 60.0 (>49)
== END ==
LOC: M LAB 08:44
PROVIDERS: ATTEND Internal Medicine Gastroenterology
DX: K50.018 Crohn's disease of small intestine with other complication (principal)

== ENCOUNTER → 2024-01-03 | Outpatient (CLI) | payer OTHER ==
[~2024-01-03] MED LIST changes: +GLUCAGON INJ 1MG VIAL As Ordered ONE; +ISOVUE-370 76% 100ML VIAL As Ordered ONE; +NEULUMEX 0.1% SUSPENSION 450ML BOTTLE (FORMERLY VOLUMEN) As Ordered ONE
== END ==
LOC: M RAD 08:06
PROVIDERS: ATTEND Internal Medicine Gastroenterology
DX: K50.018 Crohn's disease of small intestine with other complication (principal); Z98.0 Intestinal bypass and anastomosis status
CPT/HCPCS: 74177; J1610; Q9967

== ENCOUNTER → 2024-05-20 | Outpatient (CLI) | payer OTHER ==
[~2024-05-20] MED LIST changes: -GLUCAGON INJ 1MG VIAL As Ordered ONE; -ISOVUE-370 76% 100ML VIAL As Ordered ONE; -NEULUMEX 0.1% SUSPENSION 450ML BOTTLE (FORMERLY VOLUMEN) As Ordered ONE
[2024-05-20 14:38] LABS: BASO # 0.1 10^3/uL (0.0-0.2); BASO % 1.2 % (0.0-1.0); EOS # 0.3 10^3/uL (0.0-0.5); EOS % 3.9 % (0.0-3.0); HEMATOCRIT 49.2 % (42.0-52.0); HEMOGLOBIN 16.4 g/dl (13.5-17.5); LYMPH # 1.3 10^3/uL (1.5-5.0); LYMPH % 17.3 % (24.0-44.0); MEAN CORPUSCULAR HGB CONC 33.3 g/dl (32.0-36.5); MEAN CORPUSCULAR VOLUME 89.9 fl (80.0-96.0); MONO # 0.7 10^3/uL (0.0-0.8); MONO % 9.7 % (2.0-8.0); NEUTROPHILS # 4.8 10^3/uL (1.5-8.5); NEUTROPHILS % 66.5 % (36.0-66.0); PLATELET COUNT, AUTOMATED 244 10^3/uL (150-450); RED BLOOD COUNT 5.47 10^6/uL (4.30-6.10); WHITE BLOOD COUNT 7.2 10^3/uL (4.0-10.0)
[2024-05-20 14:41] LABS: C REACTIVE PROTEIN QUANTITATIV < 0.40 MG/DL (<1.0)
[2024-05-20 14:43] LABS: ALBUMIN 4.1 G/DL (3.2-5.2); ALKALINE PHOSPHATASE 78 U/L (40-129); ALT/SGPT 36 U/L (7.0-40); AST/SGOT 29 U/L (<34); BILIRUBIN,DIRECT 0.3 MG/DL (<0.4); BILIRUBIN,TOTAL 0.7 MG/DL (0.3-1.2); TOTAL PROTEIN 8.4 G/DL (5.7-8.2)
[2024-05-20 14:54] LABS: ERYTHROCYTE SEDIMENTATION RATE 33 mm/hr (0-20)
[2024-05-21 16:11] LABS: HEPATITIS B SURFACE ANTIGEN NEGATIVE (NEGATIVE)
== END ==
LOC: M LRY 11:45
PROVIDERS: ATTEND Internal Medicine Gastroenterology
DX: K50.018 Crohn's disease of small intestine with other complication (principal); K75.81 Nonalcoholic steatohepatitis (NASH)

== ENCOUNTER → 2024-10-01 | Outpatient (REF) | payer OTHER | LOC: M LAB REF 12:45 | PROVIDERS: ATTEND Internal Medicine | DX: Z01.818 Encounter for other preprocedural examination (principal) ==

== ENCOUNTER → 2025-03-04 | Outpatient (CLI) | payer OTHER | LOC: M LAB 06:41 | PROVIDERS: ATTEND Internal Medicine Gastroenterology | DX: K50.018 Crohn's disease of small intestine with other complication (principal) ==

== ENCOUNTER 2025-04-01 10:14 | Day surgery (SDC) | payer OTHER ==
[~2025-04-01] VITALS: Ht 188 cm; Wt 91.9 kg
[2025-04-01] MEDS ORDERED: LIDOCAINE 2% 100 MG/5 ML SDV (FOR ANES.) As Ordered ONE (11:52)
[2025-04-01 12:12] VITALS: TEMP 97.5
[2025-04-01 12:27] VITALS: BP 150/92; O2SAT 94
== END 2025-04-01 12:40 | disposition home or self-care (01) ==
LOC: M OPP 10:14
PROVIDERS: ATTEND Internal Medicine Gastroenterology
DX: R12 Heartburn (principal); R19.7 Diarrhea, unspecified; G47.30 Sleep apnea, unspecified; Z91.040 Latex allergy status; Z91.048 Other nonmedicinal substance allergy status; Z79.84 Long term (current) use of oral hypoglycemic drugs; Z79.85 Long-term (current) use of injectable non-insulin antidiabetic drugs; Z79.899 Other long term (current) drug therapy; J45.909 Unspecified asthma, uncomplicated
CPT/HCPCS: 43239; 88305; J3010

== ENCOUNTER → 2025-04-07 | Outpatient (REF) | payer OTHER | LOC: M LAB REF 12:10 | PROVIDERS: ATTEND Internal Medicine Gastroenterology | DX: K50.018 Crohn's disease of small intestine with other complication (principal) ==

== ENCOUNTER → 2025-06-01 | Outpatient (CLI) | payer OTHER | LOC: M LAB 09:48 | PROVIDERS: ATTEND Internal Medicine Gastroenterology | DX: K50.018 Crohn's disease of small intestine with other complication (principal) ==